=== PATIENT | female | born 2000 | race African-American/Black ===

== ENCOUNTER 2024-03-19 14:30 | Emergency (ER) | payer OTHER, SELFPAY ==
--- NOTE | ~2024-03-19 | CT_ITS ---
EXAMINATION: CT abdomen pelvis w con DATE: 03/19/2024 17:22 INDICATION: Abdominal pain. TECHNIQUE: Computed tomography (CT) of the abdomen and pelvis was performed with 100 mL Omnipaque 350 intravenous contrast. Automated exposure control and iterative reconstruction technique were employe d. The dose-length product was 223.42 mGy-cm. COMPARISON: None. FINDINGS: The visualized portions of the lung bases are clear without pneumonia or pleural effusion. The heart size is normal. No pericardial effusion. The liver, gallbladder, spleen, pancreas, adrenal glands, and kidneys are normal. There are no dilated loops of bowel. The appendix is normal. There ar e no pathologically enlarged lymph nodes. There is no free intraperitoneal fluid. There is mild lumba r spondylosis. IMPRESSION: 1. No etiology for the patient's symptoms. Reviewed, dictated and finalized at location A. [facility]
--- NOTE | ~2024-03-19 | US_ITS ---
EXAMINATION: US pelvic complete DATE: 03/19/2024 18:52 INDICATION: Abdominal pain. TECHNIQUE: Multiple transabdominal sonographic images of the pelvis were obtained. COMPARISON: CT abdomen and pelvis 03/19/2024 FINDINGS: The uterus measures 6.2 x 3.1 x 3.4 cm. There is no free fluid in the pelvis. The endometrial complex measures 7 mm in thickness. The right ovary measures 2.5 x 1.7 x 2.0 cm. The left ovary measures 1.9 x 1.1 x 1.9 cm. There is normal vascular flow in the ovaries. IMPRESSION: 1. Normal pelvis. Reviewed, dictated and finalized at location A. [facility] [employer] IMPRESSION: 1. Normal pelvis.
[2024-03-19 14:44] VITALS: BP 131/80; PULSE 74; RESP 24; TEMP 36.5; O2SAT 100
--- NOTE | 2024-03-19 15:58 | ED_ITS ---
HPI - Nausea/Vomiting/Diarrhea General Chief complaint: Nausea/Vomiting/Diarrhea Stated complaint: n/v Time Seen by Provider: 03/19/24 15:45 Focused HPI: Patient is a 24-year-old [place] female who presents to the ER with complaints abdominal pain, nausea, vomiting and diarrhea that started this morning around 7:00 a.m. She reports most of her abdominal pain is around her belly but it radiates to both flanks. Patient denies any medical history related to the ER visit. She denies any fevers or urinary symptoms. GENERAL: Ill-appearing, well-nourished, and in mild distress (as evidenced by mild rocking). HEAD: Normocephalic, atraumatic. CHEST: Clear to auscultation. ?No respiratory distress, but mild tachypnea. HEART: Regular rate and rhythm.? NEURO: ?Alert and oriented x3. Patient screened in triage and initial orders placed.? ?Additional care and disposition to be based upon?diagnostic testing and treatment. Related Data Home Medications ?Medication ?Instructions ?Recorded ?Confirmed ?Last Taken ?Type drospirenone (contraceptive) 4 mg 4 mg PO 03/23/23 05/30/23 Unknown History (28) tablet (Slynd) Allergies Allergy/AdvReac Type Severity Reaction Status Date / Time No Known Allergies Allergy Verified 03/19/24 14:49 [facility] Social History Social History Smoking status: Never smoker Alcohol intake: never Substance use: former Substance use type: marijuana Do You Feel Safe in your Home?: Yes Lack of Transportation: No Lack of Food: Never True Current Housing: I Have Housing Concerned About Future Housing: No Difficulty Paying Gas/Electric Bills: No Difficulty Paying for Meds: No Currently Unemployed: No Education: High School Diploma/GED Difficulty w/ Childcare or Family Care: No Additional living arrangements comments: bayfriend Occupation/Education: unemployed Gender identity (if verbalized by the patient): Female Sexual Orientation (if Verbalized by the Patient): Straight or Heterosexual Course Vital Signs Vital signs: Vital Signs Temperature 36.5 C 03/19/24 14:44 Pulse Rate 74 03/19/24 14:44 Respiratory Rate 24 H 03/19/24 14:44 Blood Pressure 131/80 03/19/24 14:44 Pulse Oximetry 100 03/19/24 14:44 Oxygen Delivery Room Air 03/19/24 14:44 Temperature 36.5 C 03/19/24 14:44 Pulse Rate 74 03/19/24 14:44 Respiratory Rate 24 H 03/19/24 14:44 Blood Pressure 131/80 03/19/24 14:44 Pulse Oximetry 100 03/19/24 14:44 Oxygen Delivery Room Air 03/19/24 14:44 Discharge Plan Discharge Patient Language: Nigerien Prescriptions: No Action Slynd 4 mg (28) tablet 4 mg PO Follow-up/Referrals: PHYSICIAN,[employer] [Primary Care Provider] -
[2024-03-19] MEDS: ONDANSETRON HCL ODT 4 MG TABLET PO (16:06)
[2024-03-19 16:17] LABS: Basophils Percent Auto 0.1 % (0.2-1.2); Eosinophils Percent Auto 0.1 % (0-4.4); Hematocrit 38.6 % (37.0-47.0); Hemoglobin 13.1 g/dL (12.0-15.0); Immature Granulocyte Absolute 0.06 K/mm3 (0.00-0.031); Immature Granulocyte Percent A 0.4 % (0-0.5); Lymphocytes Absolute Auto 0.68 K/mm3 (0.9-3.2); Mean Corpuscular HGB Conc 33.9 g/dl (32-36); Mean Corpuscular Volume 88.3 fl (80-100); Mean Platelet Volume 10.4 fl (7.4-10.4); Monocytes Percent Auto 5.9 % (2.6-8.5); Neutrophils Absolute Auto 15.1 K/mm3 (1.3-6.7); Neutrophils Percent Auto 89.5 % (45.5-73.1); Platelet Count Result 243 k/mm3 (150-375); Red Blood Count 4.37 M/mm3 (4.2-5.4); Red Cell Distribution Width 12.7 % (11.5-14.5); White Blood Count 16.9 K/mm3 (4.5-10.0)
[2024-03-19] MEDS: SODIUM CHLORIDE 0.9% IV 1,000 ML 999 ML IV CONT (16:36)
[2024-03-19 16:43] LABS: Alanine Aminotransferase 17 U/L (6-35); Albumin Level 4.9 g/dL (3.5-5.1); Alkaline Phosphatase 78 U/L (38-126); Anion Gap 13 mmol/L (4-12); Aspartate Amino Transferase 27 U/L (14-36); Bilirubin,Total 1.1 mg/dL (0.2-1.3); Blood Urea Nitrogen 12 mg/dL (7-17); Calcium 9.8 mg/dL (8.4-10.2); Carbon Dioxide 19 mmol/L (22-30); Chloride 108 mmol/L (98-107); Estimated CRCL calculation 82 ml/min; Estimated Glomerular Filt Rate > 60; Glucose 190 mg/dL (65-110); Lipase 20 U/L (23-300); Potassium 3.6 mmol/L (3.4-5.0); Sodium 140 mmol/L (137-145)
[2024-03-19 16:45] LABS: Lactic Acid Reflex 4.6 mmol/L (0.7-2.0)
[2024-03-19 16:50] LABS: Schistocytes None Seen
[2024-03-19 16:53] LABS: Ovalocytes 1+
[2024-03-19 16:54] LABS: Giant Platelets Present; Large Platelets Present; Platelet Estimate Adequate (Adequate)
[2024-03-19 16:57] LABS: Beta HCG Quantitative < 2.39 mIU/ML
--- NOTE | 2024-03-19 17:21 | ED.NAVMDI ---
HPI - Nausea/Vomiting/Diarrhea General Chief complaint: Nausea/Vomiting/Diarrhea Stated complaint: n/v Time Seen by Provider: 03/19/24 15:45 Source: patient Mode of arrival: ambulatory Limitations: no limitations History of Present Illness HPI Narrative: This is a 24-year-old female who presents to the ED for chief complaint of abdominal pain that started after they woke up this morning around 0630. Patient reports associated nausea with several episodes of vomiting today. They do see an Ob regularly for ovarian cyst and menstrual cycle issues. Reports the pain is across the lower abdomen and comes in waves. Denies urinary symptoms, vaginal symptoms, GI bleeding symptoms, diarrhea, chest pain, shortness of breath, flank pain. Related Data Home Medications ?Medication ?Instructions ?Recorded ?Confirmed ?Last Taken ?Type drospirenone (contraceptive) 4 mg 4 mg PO 03/23/23 05/30/23 Unknown History (28) tablet (Slynd) Allergies Allergy/AdvReac Type Severity Reaction Status Date / Time No Known Allergies Allergy Verified 03/19/24 14:49 Review of Systems Review of Systems: All systems as dictated in [facility] Social History Social History Smoking status: Never smoker Alcohol intake: never Substance use: former Substance use type: marijuana Do You Feel Safe in your Home?: Yes Lack of Transportation: No Lack of Food: Never True Current Housing: I Have Housing Concerned About Future Housing: No Difficulty Paying Gas/Electric Bills: No Difficulty Paying for Meds: No Currently Unemployed: No Education: High School Diploma/GED Difficulty w/ Childcare or Family Care: No Additional living arrangements comments: bayfriend Occupation/Education: unemployed Gender identity (if verbalized by the patient): Female Sexual Orientation (if Verbalized by the Patient): Straight or Heterosexual Exam Narrative: GENERAL: Well-appearing, well-nourished, and in no acute distress. HEAD: Normocephalic, atraumatic. EYES: PERRLA and EOMI. ENT: Nares clear, no rhinorrhea or epistaxis. Mucous membranes moist. Oropharynx without tonsillar hypertrophy exudate or other lesions. NECK: Supple. No adenopathy or masses. CHEST: No respiratory distress. Clear to auscultation. No wheezes rales or rhonchi HEART: Regular rate and rhythm. No murmur heard. Normal peripheral pulses. ABDOMEN: Positive abdominal tenderness across the lower abdomen. Soft, nondistended, normal active bowel sounds. No rigidity or guarding. MSK: Normal range of motion. No edema. SKIN: Warm, dry, no rash. NEURO: Alert and oriented x4. No focal deficits. PSYCH: Normal mood and affect. Course Vital Signs Vital signs: Vital Signs Temperature 97.7 F 03/19/24 14:44 Pulse Rate 74 03/19/24 14:44 Respiratory Rate 24 H 03/19/24 14:44 Blood Pressure 131/80 03/19/24 14:44 Pulse Oximetry 100 03/19/24 14:44 Oxygen Delivery Room Air 03/19/24 14:44 Temperature 97.7 F 03/19/24 14:44 Pulse Rate 64 03/19/24 21:47 Respiratory Rate 15 03/19/24 21:47 Blood Pressure 107/72 03/19/24 21:47 Pulse Oximetry 99 03/19/24 21:47 Oxygen Delivery Room Air 03/19/24 14:44 MDM - Nausea/Vomiting/Diarrhea MDM Narrative Medical decision making narrative: This is a 24-year-old female who presents to the ED for chief complaint of lower abdominal pain with profuse nausea, vomiting and diarrhea. Vitals are normal. Exam does show lower abdominal tenderness. Lab work remarkable for lactate of 4.8 and white count of 16.9. Bicarb slightly low at 19 and anion gap slightly elevated at 13. Kidney function intact. Lipase normal. test negative. UA just shows dehydration but no infection. CT imaging of the abdomen and pelvis with IV contrast as well as pelvic ultrasound are both negative for acute findings. Patient was given 2 L of fluids, Toradol and Zofran. She still remained nauseous and had vomiting so Reglan was given. She was also given a 3rd L of fluids after the subsequent lactic came back elevated at 3.5. Re-evaluation shows patient is resting comfortably. She has no nausea or vomiting now. Pain is relieved fully. Third lactic acid down trending at 3.2. Suspect gastroenteritis versus cyclic vomiting as the cause for her symptoms and elevated laboratory studies. Patient will be discharged in stable condition. Supportive measures discussed and return precautions given. Patient is understanding and agreeable with plan for discharge with PCP follow-up. Lab Data 03/19/24 16:05 03/19/24 16:05 Labs: Lab Results 03/19/24 03/19/24 03/19/24 Range/Units 16:05 16:05 17:37 WBC 16.9 H (4.5-10.0) K/mm3 RBC 4.37 (4.2-5.4) M/mm3 Hgb 13.1 (12.0-15.0) g/dL Hct 38.6 (37.0-47.0) % MCV 88.3 (80-100) fl MCH 30.0 (26-34) pg MCHC 33.9 (32-36) g/dl RDW 12.7 (11.5-14.5) % Plt Count 243 (150-375) k/mm3 MPV 10.4 (7.4-10.4) fl Immature Gran % (Auto) 0.4 (0-0.5) % Neut % (Auto) 89.5 H (45.5-73.1) % Lymph % (Auto) 4.0 L (18.3-44.2) % [place] % (Auto) 5.9 (2.6-8.5) % Eos % (Auto) 0.1 (0-4.4) % Baso % (Auto) 0.1 L (0.2-1.2) % Lymph # (Auto) 0.68 L (0.9-3.2) K/mm3 [place] # (Auto) 1.0 H (0.1-0.6) K/mm3 Eos # (Auto) 0.0 (0-0.3) K/mm3 Baso # (Auto) 0.0 (0.0-0.1) K/mm3 Abs Immat Gran (auto) 0.06 H (0.00-0.031) K/mm3 Absolute Neuts (auto) 15.1 H (1.3-6.7) K/mm3 Absolute Nucleated RBC 0.000 (0.0-0.012) K/mm3 Nucleated RBC % 0.0 (0.0-0.2) % Platelet Estimate Adequate (Adequate) Large Platelets Present Giant Platelets Present Ovalocytes 1+ Schistocytes None seen Sodium 140 (137-145) mmol/L Potassium 3.6 (3.4-5.0) mmol/L Chloride 108 H (98-107) mmol/L Carbon Dioxide 19 L (22-30) mmol/L Anion Gap 13 H (4-12) mmol/L BUN 12 (7-17) mg/dL Creatinine 0.70 (0.7-1.0) mg/dL Estim Creat Clear Calc 82 ml/min Estimated GFR > 60 (59 - ) Glucose 190 H (65-110) mg/dL Lactic Acid 4.6 H* (0.7-2.0) mmol/L Calcium 9.8 (8.4-10.2) mg/dL Total Bilirubin 1.1 (0.2-1.3) mg/dL AST 27 (14-36) U/L ALT 17 (6-35) U/L Alkaline Phosphatase 78 (38-126) U/L Total Protein 8.0 (6.3-8.2) g/dL Albumin 4.9 (3.5-5.1) g/dL Lipase 20 L Cancelled (23-300) U/L Beta HCG, Quant < 2.39 mIU/ML Urine Color Yellow (Yellow) Urine Appearance Clear (Clear) Urine pH 5.5 (5.0-9.0) Ur Specific [place] > 1.045 H (1.001-1.035) Urine Protein Negative (Negative) mg/dL Urine Glucose (UA) Negative (Negative) mg/dL Urine Ketones Negative (Negative) mg/dL Ur Blood (Man) Negative (Negative) Urine Nitrate Negative (Negative) Urine Bilirubin Negative (Negative) Urine Urobilinogen 0.2 (<2.0) mg/dL Leukocyte Esterase Rfl Negative (Negative) MICHAEL/UL POC Urine HCG, Qual (Negative) Urine Test Negative 03/19/24 03/19/24 03/19/24 Range/Units 17:41 19:23 21:27 WBC (4.5-10.0) K/mm3 RBC (4.2-5.4) M/mm3 Hgb (12.0-15.0) g/dL Hct (37.0-47.0) % MCV (80-100) fl MCH (26-34) pg MCHC (32-36) g/dl RDW (11.5-14.5) % Plt Count (150-375) k/mm3 MPV (7.4-10.4) fl Immature Gran % (Auto) (0-0.5) % Neut % (Auto) (45.5-73.1) % Lymph % (Auto) (18.3-44.2) % [place] % (Auto) (2.6-8.5) % Eos % (Auto) (0-4.4) % Baso % (Auto) (0.2-1.2) % Lymph # (Auto) (0.9-3.2) K/mm3 [place] # (Auto) (0.1-0.6) K/mm3 Eos # (Auto) (0-0.3) K/mm3 Baso # (Auto) (0.0-0.1) K/mm3 Abs Immat Gran (auto) (0.00-0.031) K/mm3 Absolute Neuts (auto) (1.3-6.7) K/mm3 Absolute Nucleated RBC (0.0-0.012) K/mm3 Nucleated RBC % (0.0-0.2) % Platelet Estimate (Adequate) Large Platelets Giant Platelets Ovalocytes Schistocytes Sodium (137-145) mmol/L Potassium (3.4-5.0) mmol/L Chloride (98-107) mmol/L Carbon Dioxide (22-30) mmol/L Anion Gap (4-12) mmol/L BUN (7-17) mg/dL Creatinine (0.7-1.0) mg/dL Estim Creat Clear Calc ml/min Estimated GFR (59 - ) Glucose (65-110) mg/dL Lactic Acid 3.5 H 3.2 H (0.7-2.0) mmol/L Calcium (8.4-10.2) mg/dL Total Bilirubin (0.2-1.3) mg/dL AST (14-36) U/L ALT (6-35) U/L Alkaline Phosphatase (38-126) U/L Total Protein (6.3-8.2) g/dL Albumin (3.5-5.1) g/dL Lipase (23-300) U/L Beta HCG, Quant mIU/ML Urine Color (Yellow) Urine Appearance (Clear) Urine pH (5.0-9.0) Ur Specific [place] (1.001-1.035) Urine Protein (Negative) mg/dL Urine Glucose (UA) (Negative) mg/dL Urine Ketones (Negative) mg/dL Ur Blood (Man) (Negative) Urine Nitrate (Negative) Urine Bilirubin (Negative) Urine Urobilinogen (<2.0) mg/dL Leukocyte Esterase Rfl (Negative) MICHAEL/UL POC Urine HCG, Qual Negative (Negative) Urine Test Discharge Plan Discharge Clinical Impression: Dehydration, Nausea & vomiting Patient Disposition: Home, Self-Care Condition: Stable Instructions: Antibiotic Form Additional Instructions: Your exam today showed significant dehydration. This could be a viral illness or the pain could also be related to ruptured ovarian cyst. Please follow-up with Ob on this. Stay very well hydrated at home. Use Zofran as needed for nausea. If you have any new or worsening symptoms please return to the ER for further evaluation. Patient Language: Kazakh Prescriptions: New ondansetron 4 mg tablet,disintegrating 4 mg PO Q8H PRN (Reason: nausea and vomiting) Qty: 10 0RF No Action Slynd 4 mg (28) tablet 4 mg PO Follow-up/Referrals: PHYSICIAN,[employer] [Primary Care Provider] - Time of Disposition: 22:19
[2024-03-19] MEDS: LACTATED RINGERS 1,000 ML 999 ML IV CONT ×2 (17:24→20:08)
[2024-03-19] MEDS: KETOROLAC 15 MG/ML VIAL (*BKC) IV PUSH (17:25)
[2024-03-19 17:43] LABS: BEDSIDEPREGUCG Negative (Negative)
[2024-03-19 17:58] LABS: Add Urine Microscopic? NO; Appearance Urine Clear (Clear); Bilirubin Urine Negative (Negative); Blood Urine Negative (Negative); Color Urine Yellow (Yellow); Glucose Urine UA Negative (Negative); Ketones Urine Negative (Negative); Leukocyte Esterase Ur Negative LEU/UL (Negative); Nitrate Urine Negative (Negative); Protein Urine Negative (Negative); Specific Grav Ur > 1.045 (1.001-1.035); Urobilinogen Urine 0.2 mg/dL (<2.0); pH Urine 5.5 (5.0-9.0)
[2024-03-19] MEDS: METOCLOPRAMIDE HCL INJ 10 MG/2 ML VIAL IV PUSH (18:15)
[2024-03-19 19:14] LABS: Reflex Lactic Acid Yes or No Add Lactic
[2024-03-19 19:43] LABS: Lactic Acid Reflex 3.5 mmol/L (0.7-2.0)
[2024-03-19 21:47] VITALS: BP 107/72; PULSE 64; RESP 15; O2SAT 99
[2024-03-19 21:52] LABS: Lactic Acid Reflex 3.2 mmol/L (0.7-2.0)
[2024-03-19 22:36] LABS: Pregnancy On Board Control Positive; Urine Pregnancy Test Negative
== END 2024-03-19 22:43 | disposition home or self-care (01) ==
PROVIDERS: Registered Nurse; Emergency Provider Physician Assistant
DX: R11.2 Nausea with vomiting, unspecified (principal); E86.0 Dehydration
CPT/HCPCS: 36415; 74177; 76856; 80053; 81003; 81025; 83605; 83690; 84702; 85025; 96361; 96374; 96375; 99284; A9270; J1885; J2765; J7030; J7120; Q9967